=== PATIENT | female | born 1975 | race Caucasian/White ===

== ENCOUNTER 2017-04-04 17:59 | Emergency (ER) | payer MEDICAID ==
[~2017-04-04] VITALS: Ht 160 cm; Wt 141.8 kg
[2017-04-04 18:02] VITALS: BP 128/91
== END 2017-04-04 18:33 | disposition home or self-care (01) ==
LOC: ED 18:27
DX: K02.9 Dental caries, unspecified (principal); I10 Essential (primary) hypertension; J45.909 Unspecified asthma, uncomplicated; M54.9 Dorsalgia, unspecified; G89.29 Other chronic pain
CPT/HCPCS: 99283

== ENCOUNTER 2019-10-25 12:53 | Emergency (ER) | payer SELFPAY ==
[~2019-10-25] VITALS: Ht 157.5 cm; Wt 136.3 kg
[2019-10-25 14:31] LABS: BASOPHILS # (AUTO) 0.05 x10^3/uL (0-0.1); BASOPHILS % (AUTO) 0 % (0-1); EOSINOPHILS # (AUTO) 0.24 x10^3/uL (0-0.4); EOSINOPHILS % (AUTO) 2 % (1-7); LYMPHOCYTES # (AUTO) 4.21 x10^3/uL (1-3.4); LYMPHOCYTES % (AUTO) 30 % (22-44); MD NO; MEAN CORPUSCULAR HEMOGLOBIN 31.3 pg (27.0-34.8); MEAN CORPUSCULAR HGB CONC 33.4 g/dL (32.4-35.8); MEAN CORPUSCULAR VOLUME 93.7 fL (80-100); MEAN PLATELET VOLUME 7.2 fL (7.4-10.4); MONOCYTES # (AUTO) 0.96 x10^3/uL (0.2-0.8); MONOCYTES % (AUTO) 7 % (2-9); NEUTROPHILS # (AUTO) 8.61 x10^3/uL (1.8-6.8); NEUTROPHILS % (AUTO) 61 % (42-75); PLATELET COUNT 397 x10^3/uL (130-400); RED BLOOD COUNT 5.52 x10^6/uL (3.82-5.3); RED CELL DISTRIBUTION WIDTH 14.3 % (9.6-15.2)
--- NOTE | 2019-10-25 14:32 | NUR ---
Pt to rm 2 from [facility]
[2019-10-25 14:34] LABS: ALANINE AMINOTRANSFERASE 32 U/L (12-78); ALBUMIN 3.4 g/dL (3.4-5.0); ANION GAP 7 mmol/L (5-15); CALCIUM 9.1 mg/dL (8.5-10.1); CHLORIDE 101 mmol/L (98-107); CREATININE 0.78 mg/dL (0.55-1.02)
--- NOTE | 2019-10-25 14:36 | NUR ---
43 Y/O FEMALE PRESENTS TO ED WITH UPPER RIGHT QUADRANT PAIN "I HAVE SOME DULL ABDOMINAL PAIN FOR 8 DAYS. IT'S BEEN CONSISTENT NONSTOP DULL PAIN. THE SHARPNESS OF IT STARTED TODAY. THE PAIN WRAPS AROUND" NO C/O N/V/D, TRAUMA, CP, SOB. NO C/O DYSURIA, HEMATURIA
[2019-10-25 14:38] LABS: ALKALINE PHOSPHATASE 98 U/L (45-117); BILIRUBIN,TOTAL 0.4 mg/dL (0.2-1.0); TOTAL PROTEIN 7.7 g/dL (6.4-8.2)
--- NOTE | 2019-10-25 14:41 | NUR ---
TASK RN: PT EDUCATED REGARDING UA NEEDED.
--- NOTE | 2019-10-25 14:44 | NUR ---
TASK RN: PT AMBULATORY WITH STEADY GAIT TO BATHROOM FOR UA. LURDES
--- NOTE | 2019-10-25 14:49 | NUR ---
TASK RN: PT TO IMAGING.
[2019-10-25] MEDS ORDERED: ONDANSETRON ODT 4 MG PO ONE (15:00)
[2019-10-25] MEDS ORDERED: HYDROcodone/APAP 5/325 TABLET PO ONE (15:00)
--- NOTE | 2019-10-25 15:01 | NUR ---
TASK RN: BEDSIDE REPORT TO DEJAH MICHELLE.
[2019-10-25] MEDS ORDERED: ONDANSETRON ODT 4 MG ONE (15:02)
[2019-10-25] MEDS ORDERED: HYDROcodone/APAP 5/325 TABLET ONE (15:04)
[2019-10-25 15:09] LABS: MICROSCOPIC AUTO
[2019-10-25 15:20] LABS: CULTURE INDICATED? YES
[2019-10-25 16:03] VITALS: BP 138/89
--- NOTE | 2019-10-25 16:04 | NUR ---
Patient/Caregiver given discharge instructions and they have confirmed that they understand the instructions. Patient transfers from bed to personal wheelchair independently.
--- NOTE | 2019-10-25 16:05 | NUR ---
LATE ENTRY 1600, PT TOLLERATING PO FLUIDS.
== END 2019-10-25 16:05 | disposition home or self-care (01) ==
LOC: ED 16:00
DX: R10.9 Unspecified abdominal pain (principal); R73.9 Hyperglycemia, unspecified; I10 Essential (primary) hypertension; J45.909 Unspecified asthma, uncomplicated; Z90.49 Acquired absence of other specified parts of digestive tract; E66.01 Morbid (severe) obesity due to excess calories; Z68.43 Body mass index [BMI] 50.0-59.9, adult; Z88.6 Allergy status to analgesic agent; Z88.5 Allergy status to narcotic agent
CPT/HCPCS: 36415; 74176; 80053; 81001; 83690; 84703; 85025; 87086; 99284; Q0162